=== PATIENT | male | born 1985 ===

== ENCOUNTER 2017-05-12 23:33 | Emergency (ER) | payer SELFPAY ==
[2017-05-12 23:40] VITALS: BMI 21.5
[2017-05-12 23:52] VITALS: RESP 16; O2SAT 100
[2017-05-13] MEDS ORDERED: Sodium Chloride 0.9% 1,000 ML IV STA (00:09)
--- NOTE | 2017-05-13 00:14 | ED PDOC ---
HPI: Abdomen Time Seen by Provider: 05/12/17 23:36 Chief Complaint (Nursing): Abdominal Pain Chief Complaint (Provider): Abdominal Pain, Flank Pain History Per: Patient History/Exam Limitations: no limitations Onset/Duration Of Symptoms: Hrs (x3) Current Symptoms Are (Timing): Constant Associated Symptoms: Nausea Additional Complaint(s): Cruz Dugan is a 31 y/o male who presents to the ED complaining of left lower quadrant pain, constant for the past 3 hours. Reports having similar episodes of pain in the past, which have always spontaneously resolved. Patient was dizzy and nauseous earlier, but denies vomiting, diarrhea, back pain, dysuria, and frequency. No testicular pain or groin pain. PMD: None Past Medical History Reviewed: Historical Data, Nursing Documentation, Vital Signs Vital Signs: Last Vital Signs Temp 98.0 F 05/12/17 23:50 Pulse 69 05/12/17 23:50 Resp 16 05/12/17 23:50 BP 124/73 05/12/17 23:50 Pulse Ox 100 05/13/17 02:29 - Medical History PMH: No Chronic Diseases - Surgical History Surgical History: No Surg Hx - Family History Family History: States: Unknown Family Hx - Social History Current smoker - smoking cessation education provided: No Alcohol: None Drugs: Denies - Home Medications Home Medications: Ambulatory Orders Medication Instructions Recorded Cyclobenzaprine [Cyclobenzaprine 10 mg PO BID PRN #10 tab 05/13/17 HCl] Naproxen 500 mg PO BID #20 tab 05/13/17 - Allergies Allergies/Adverse Reactions: Allergies Allergy/AdvReac Type Severity Reaction Status Date / Time No Known Allergies Allergy Verified 05/12/17 23:50 Review of Systems ROS Statement: Except As Marked, All Systems Reviewed And Found Negative Constitutional: Negative for: Fever Gastrointestinal: Positive for: Nausea, Abdominal Pain (LLQ). Negative for: Vomiting, Diarrhea Genitourinary Male: Negative for: Dysuria, Frequency, Hematuria, Scrotal Pain, Other (Groin pain) Musculoskeletal: Positive for: Back Pain (Left flank) Neurological: Positive for: Dizziness Physical Exam - Reviewed Nursing Documentation Reviewed: Yes Vital Signs Reviewed: Yes - Physical Exam Appears: Positive for: Non-toxic, Uncomfortable Head Exam: Positive for: ATRAUMATIC, NORMOCEPHALIC Skin: Positive for: Normal Color, Warm, Dry Eye Exam: Positive for: EOMI, Normal appearance, PERRL Neck: Positive for: Normal, Painless ROM, Supple Cardiovascular/Chest: Positive for: Regular Rate, Rhythm. Negative for: Murmur Respiratory: Positive for: Normal Breath Sounds. Negative for: Respiratory Distress Gastrointestinal/Abdominal: Positive for: Soft, Tenderness (to the left lower quadrant). Negative for: Hernia Male Genital Exam: Negative for: hernia mass, inguinal tenderness Back: Positive for: Normal Inspection, Muscle Spasm (present with movement), Other (Left flank tenderness). Negative for: L CVA Tenderness, R CVA Tenderness Extremity: Positive for: Normal ROM. Negative for: Pedal Edema, Deformity Neurologic/Psych: Positive for: Alert, Oriented. Negative for: Motor/Sensory Deficits - Laboratory Results Result Diagrams: 05/13/17 00:20 05/13/17 00:20 - ECG O2 Sat by Pulse Oximetry: 100 (RA) Pulse Ox Interpretation: Normal Medical Decision Making Medical Decision Making: Initial Impression: Left flank pain, Left lower quadrant pain Differentials include: musculoskeletal pain, kidney stones, and (less likely) diverticulitis. Time: 00:09 Initial Plan: --BMP --CBC --Flexeril 10 mg PO --NS IV 1000 ml at 1000 mls/hr --Toradol 30 mg IV --Pending CT Abd/Pelvis without contrast Time: 00:59 CT Abd/Pelvis without contrast FINDINGS: Lower thorax: No acute findings. ABDOMEN: Liver: Unremarkable. Gallbladder and bile ducts: The gallbladder is contracted. No calcified stones. No ductal dilation. Pancreas: Unremarkable. No ductal dilation. Spleen: Unremarkable. No splenomegaly. Adrenals: Unremarkable. No mass. Kidneys and ureters: Unremarkable. No obstructing stones. No hydronephrosis. Stomach and bowel: Unremarkable. No obstruction. No mucosal thickening. Appendix: A normal appendix is identified. PELVIS: Bladder: Unremarkable. No stones. Reproductive: Unremarkable as visualized. ABDOMEN and PELVIS: Intraperitoneal space: Unremarkable. No free air. No significant fluid collection. Bones/joints: No acute fracture. No dislocation. Soft tissues: Unremarkable. Vasculature: Unremarkable. No abdominal aortic aneurysm. Lymph nodes: Unremarkable. No enlarged lymph nodes. IMPRESSION: No acute findings. Time: 01:40 Clinical Impression: Flank pain, Abdominal pain Upon provider reevaluation patient is medically stable, and requires no further treatment in the ED at this time. Patient will be discharged with Rx for Naproxen and Cyclobenzaprine. Counseling was provided and all questions were answered regarding diagnosis and need for follow up with PMD. There is agreement to discharge plan. Return if symptoms persist or worsen. Scribe Attestation: Documented by Socorro Larios, acting as a scribe for Chantelle Raymond MD Provider Scribe Attestation: All medical record entries made by the Scribe were at my direction and personally dictated by me. I have reviewed the chart and agree that the record accurately reflects my personal performance of the history, physical exam, medical decision making, and the department course for this patient. I have also personally directed, reviewed, and agree with the discharge instructions and disposition. Disposition - Clinical Impression Clinical Impression: Flank pain, Abdominal pain - Patient ED Disposition Is Patient to be Admitted: No Doctor Will See Patient In The: Office Counseled Patient/Family Regarding: Studies Performed, Diagnosis, Need For Followup - Disposition Referrals: [facility] [Outside] Disposition: Routine/Home Disposition Time: 01:40 Condition: GOOD Additional Instructions: take your medications as instructed. Follow up with your PCP in 2-3 days. Prescriptions: Cyclobenzaprine [Cyclobenzaprine HCl] 10 mg PO BID PRN #10 tab PRN Reason: Muscle Spasm Naproxen 500 mg PO BID #20 tab Instructions: Flank Pain (ED) Print Language: YEMENI
[2017-05-13 00:23] LABS: BASO # 0.1 K/uL (0.0-0.2); BASO % 0.6 % (0.0-2.0); EOS # 0.2 K/uL (0.0-0.7); EOS % 1.6 % (0.0-4.0); HEMATOCRIT 49.7 % (35.0-51.0); LYMPH # 3.2 K/uL (1.0-4.3); LYMPH % 31.6 % (20.0-40.0); MEAN CELL VOLUME 77.8 fl (80.0-94.0); MEAN CORPUSCULAR HEMOGLOBIN 25.6 pg (27.0-31.0); MEAN CORPUSCULAR HGB CONC 32.9 g/dL (33.0-37.0); MEAN PLATELET VOLUME 8.2 fl (7.2-11.7); MONO # 0.8 K/uL (0.0-0.8); MONO % 8.1 % (0.0-10.0); NEUT # 5.8 K/uL (1.8-7.0); NEUT % 58.1 % (50.0-75.0); NRBC % 0.1 % (0.0-0.0); RED CELL DISTRIBUTION WIDTH 13.4 % (11.5-14.5)
[2017-05-13 00:32] LABS: BLOOD UREA NITROGEN 22 mg/dl (9-20); CALCIUM 10.1 mg/dL (8.4-10.2); CARBON DIOXIDE 29 mmol/L (22-30); CHLORIDE 100 mmol/L (98-107); GFR AFRICAN-AMERICAN > 60; GLUCOSE,RANDOM 89 mg/dL (75-110); SODIUM 140 mmol/l (132-148)
[2017-05-13 03:03] VITALS: BP 129/76; PULSE 87; TEMP 98.2
--- NOTE | 2017-05-13 08:33 | CT ---
PROCEDURE: CT Abdomen and Pelvis without intravenous contrast HISTORY: left flank pain LLQ pain COMPARISON: None. TECHNIQUE: Without contrast.. Contrast Dose: 0 Radiation dose: Total exam DLP = 469.84 mGy-cm. This CT exam was performed using one or more of the following dose reduction techniques: Automated exposure control, adjustment of the mA and/or kV according to patient size, and/or use of iterative reconstruction technique. FINDINGS: LOWER THORAX: Unremarkable. LIVER: Unremarkable. No gross lesion or ductal dilatation. GALLBLADDER AND BILE DUCTS: Unremarkable. PANCREAS: Unremarkable. No gross lesion or ductal dilatation. SPLEEN: Unremarkable. ADRENALS: Unremarkable. No mass. KIDNEYS AND URETERS: Unremarkable. No hydronephrosis. No solid mass. VASCULATURE: Unremarkable. No aortic aneurysm. BOWEL: Unremarkable. No obstruction. No gross mural thickening. APPENDIX: Unremarkable. Normal appendix. PERITONEUM: Unremarkable. No free fluid. No free air. LYMPH NODES: Unremarkable. No enlarged lymph nodes. BLADDER: Unremarkable. REPRODUCTIVE: Unremarkable. BONES: No acute fracture. OTHER FINDINGS: None. IMPRESSION: No acute abnormality. No evidence of urinary calculus or urinary tract obstruction. Unremarkable abdominal/ pelvic CT examination. Preliminary interpretation of this examination was reported by [employer] at 12:59 a.m. on 05/13/2017. There is concurrence of this report with the preliminary interpretation.
== END 2017-05-13 03:05 | disposition home or self-care (01) ==
LOC: H.ER 23:33
DX: R10.32 Left lower quadrant pain (principal); R42 Dizziness and giddiness
CPT/HCPCS: 74176; 80048; 85025; 96361; 96374; 99283; J1885; J7040

== ENCOUNTER 2018-12-12 14:59 | Emergency (ER) | payer SELFPAY ==
[2018-12-12 14:59] VITALS: BMI 21.5
[2018-12-12 15:30] VITALS: BP 122/66; PULSE 57; RESP 16; TEMP 97.9; O2SAT 98
== END 2018-12-12 17:48 | disposition left against medical advice (07) ==
LOC: H.ER 14:59
DX: Z02.89 Encounter for other administrative examinations (principal)